=== PATIENT | female | born 1975 | race Caucasian/White ===

== ENCOUNTER 2020-06-29 07:00 | Day surgery (SDC) | payer OTHER ==
[~2020-06-29] VITALS: Ht 165.1 cm; Wt 86.0 kg
[~2020-06-29 07:00] MED LIST: ADVAIR 100-501 EACH INH; COMBIVENT RESPIM4 GM INH; LISINOPRIL2.5 MG PO; SINGULAIR4 M1 PO
[2020-06-29] MEDS ORDERED: OMEPRAZOLE20 MG PO (07:19)
--- NOTE | 2020-06-29 08:15 | NUR ---
06/29/20 0815 Izabela Hidalgo 0808 PT TO PACU SLEEPY BUT AROUSABLE DENIES PAIN OR NAUSEA.
--- NOTE | 2020-06-29 08:57 | OR ---
[facility] [address], [place] [address] Signed DATE OF OPERATION: 06/29/2020 SURGEON: Iam Jeffery MD PREOPERATIVE DIAGNOSES: 1. Heartburn. 2. Asthma and cough. 3. Vomiting. 4. Esophageal dysphagia. POSTOPERATIVE DIAGNOSES: 1. Moderate hiatal hernia (36-32 cm). 2. Mild distal esophagitis. PROCEDURES: EGD with CLOtest and biopsies of the pyloric bulb, antrum and distal esophagus. ESTIMATED BLOOD LOSS: None. INDICATIONS: Cornelia is a 45-year-old female asked to see me for upper endoscopy. She said the last six months she has had terrible heartburn requiring significant amounts of Tums and Rolaids. She said the asthma and her cough were worse. It is worse when she lies supine. In the last two months, she started vomiting having what sounds like proximal esophageal dysphagia. Although she lives in [place], [place], she works in the [place] area. Consequently, she sees Dr. Ace Garza [facility] [place], [place]. In the office I had given Cornelia a pamphlet on upper endoscopy. She understands the nature of the test along with the risks including, but not limited to gas bloating, crampy abdominal pain, bleeding, perforation requiring surgery, and missed diagnosis. She also understands the need for IV conscious sedation. We also sent Cornelia for a barium swallow. She does have a small to moderate sized hiatal hernia and possibly a little narrowing of the esophagus right around the C5-C6 position. However, it does not impede her swallowing. Of course, she had reflux during the test. In talking with Cornelia this morning, she did start omeprazole and she is not sure it is helping. She is only taking 20 mg once a day. However, after talking with Cornelia, we decided to hold off dilating the proximal esophagus. Usually these patients can get their acid reflux under control, then their dysphagia improves. In the end, she is quite young, she may require surgical treatment of the hiatal hernia. She had expressed understanding and wished to proceed. Electronically Signed By: IAM JEFFERY MD 06/29/20 0857 PATIENT NAME: CORNELIA DODD OPERATIVE REPORT DATE OF : 73 REPORT #: [id number] PHYSICIAN: IAM JEFFERY MD PCP: ACE GARZA REPORT IS CONFIDENTIAL AND NOT TO BE RELEASED WITHOUT AUTHORIZATION [facility] [address] [place] [id number] Signed PROCEDURE NOTE: Cornelia was taken into our endoscopy suite and placed in the supine semi-recumbent position. She was given IV sedation with 5 mg of Versed and 100 mcg of fentanyl. The posterior oropharynx was anesthetized with lidocaine spray. A bite block was utilized for the case. The adult gastroscope was introduced and advanced under direct visualization out into the third portion of the duodenum without difficulty. The duodenum was unremarkable. Very minimal if any inflammatory changes in the pyloric bulb and the antrum. We went and took a biopsy of the pyloric bulb and the antrum for pathologic review. An additional biopsy came out of the antrum for CLOtest. No ulcerations. Upon retroflexion of scope, we can see her moderate-sized hiatal hernia. It measured out from 36 to 32 cm. The scope was withdrawn up through the area of the GE junction, which was compliant without stricture. There was no Sharif's mucosa. However she had several streaks of inflammatory changes up into the distal esophagus. Consequently, she has mild distal esophagitis. We went and took a biopsy just above the GE junction in this area. The middle and upper esophagus were unremarkable. Specifically, no obvious stricture in passing the scope. The posterior oropharynx appeared unremarkable. In particular, the vocal cords and the arytenoids unremarkable. After this, the gas was suctioned out and the gastroscope removed and she tolerated the procedure quite well. RECOMMENDATIONS: I will see Cornelia back in my office in 7 to 14 days to review her results. She might consider using an H2 jose in the evening to help at night. In the end, she is a likely candidate for surgical treatment of her hiatal hernia. Iam Jeffery MD ALB/MODL /[id number] cc: MD Ace Galloway Electronically Signed By: IAM JEFFERY MD 06/29/20 0857 PATIENT NAME: CORNELIA DODD OPERATIVE REPORT DATE OF : 73 REPORT #: [id number] PHYSICIAN: IAM JEFFERY MD PCP: ACE GARZA REPORT IS CONFIDENTIAL AND NOT TO BE RELEASED WITHOUT AUTHORIZATION [address] [address] Signed Copies: IAM JEFFERY MD, BRUCE ~ Electronically Signed By: IAM JEFFERY MD 06/29/20 0857 PATIENT NAME: CORNELIA DODD Velasquez OPERATIVE REPORT DATE OF : 73 REPORT #: [id number] PHYSICIAN: IAM JEFFERY MD PCP: ACE GARZA REPORT IS CONFIDENTIAL AND NOT TO BE RELEASED WITHOUT AUTHORIZATION
== END 2020-06-29 08:50 | disposition home or self-care (01) ==
LOC: OPS 07:00 → DS 08:15 → OPS 08:15
PROVIDERS: ATTEND Colon & Rectal Surgery
PROC: 0DB78ZX Excision of Stomach, Pylorus, Via Natural or Artificial Opening Endoscopic, Diagnostic (ICD-10-PCS; 2020-06-29)
PROC: 0DB48ZX Excision of Esophagogastric Junction, Via Natural or Artificial Opening Endoscopic, Diagnostic (ICD-10-PCS; principal; 2020-06-29 08:15)
DX: K21.00 Gastro-esophageal reflux disease with esophagitis, without bleeding (principal); K29.50 Unspecified chronic gastritis without bleeding; K44.9 Diaphragmatic hernia without obstruction or gangrene; J45.909 Unspecified asthma, uncomplicated; Z88.0 Allergy status to penicillin
CPT/HCPCS: 84703; 86677; G0500; J2250; J3010; J7121

== ENCOUNTER 2024-05-01 05:57 | Day surgery (SDC) | payer BC ==
[2024-04-28 10:39] VITALS: BP 111/70
[~2024-05-01] VITALS: Ht 165.1 cm; Wt 97.7 kg
[~2024-05-01 05:57] MED LIST changes: +ALL DAY ALLERGY10 MG PO; +MIDAZOLAM HCL 5 MG/5 ML VIAL IV PRN; +OMEPRAZOLE20 MG PO; +fentaNYL citrate 100 MCG/2 ML VIAL IV PRN
[2024-05-01 06:06] VITALS: BP 132/83
[2024-05-01] MEDS ORDERED: COMBIVENT RESPIM4 GM INH (06:19)
[2024-05-01] MEDS ORDERED: LIDOCAINE HCL 1% 5 ML SDV INJ ONE (07:00)
[2024-05-01] MEDS ORDERED: LACTATED RINGER'S 1,000 ML IV SCH (07:00)
[2024-05-01] MEDS ORDERED: IBLOOD GLUCOSE TEST STRIP 1 EA TEST VI PRN (07:00)
[2024-05-01] MEDS ORDERED: LIDOCAINE HCL 2% 5 ML SDV ONE (07:12)
[2024-05-01] MEDS ORDERED: propofoL 200 MG/20 ML VIAL ONE (07:12)
[2024-05-01 08:26] VITALS: BP 130/78
--- NOTE | 2024-05-01 08:52 | NUR ---
05/01/24 0852 Radha Solorzano 0755- PT ARRIVES WITH A NATURAL AIRWAY ON 4L OF O2 VIA NC. BREATHING IS EVEN AND UNLABORED. PT IS REACTIVE TO STIMULI. PT LIFTING ARMS AND ITCHING HER FACE, PT REMINDED TO BE CAREFUL OF HER EYES. WHEN ASKED ABOUT PAIN THE PT HOLDS UP HER RIGHT HAND WITH THE IV SITE AND DENIES NAUSEA. PT EASILY FALLS BACK TO SLEEP AND SOME SNORING NOTED. LR INFUSING IN HER R HAND AND HER ABDOMEN IS SOFT AND NONDISTENDED. ALL MONITORS PUT IN PLACE AND VSS. PT IS MOVED UP IN THE BED AND KNEES BENT FOR COMFORT. 0806- O2 TURNED OFF AND REMOVED FOR O2 SATS AT 100%. PT IS ABLE TO MAINTAIN O2 SATS ABOVE 95%. 0813- PT EASILY WAKES TO VERBAL STIMULI AND HOB INCREASED AND WATER PROVIDED PER REQUEST. PT TOLERATING WELL. 0815- PT REPORTS THAT HER THROAT IS "SORE" AND SCORES IT A 1/10 ON THE SCALE. PT REPORTS THAT THIS IS TOLERABLE. 0821- DC INSTRUCTIONS AND PAPERWORK GONE OVER. NO QUESTIONS OR CONCERNS. 0827- ALL MONITORS REMOVED. IV REMOVED. PT GETTING DRESSED INDEPENDENTLY WITH NO ISSUES. PT AMBULATES WITH AN EVEN AND STEADY GAIT TO THE RESTROOM AND RETURNS. 0838- PT DC FROM PACU WITH ALL BELONGINGS AND PAPERWORK VIA . PT DENIES QUESTIONS OR CONCERNS.
--- NOTE | 2024-05-01 08:55 | OR ---
[facility] [address], [place] [address] Signed DATE OF OPERATION: 05/01/2024 SURGEON: Iam Jeffery MD PREOPERATIVE DIAGNOSES: 1. Moderate sized hiatal hernia (36-32 cm). 2. Gastroesophageal reflux disease. 3. Mild proximal esophageal dysphagia. 4. History of gastritis. 5. History of distal esophagitis. POSTOPERATIVE DIAGNOSES: 1. Moderate sized hiatal hernia (38-32 cm). 2. GE junction at 32 cm. 3. Mild distal gastritis. 4. Mild distal linear esophagitis. PROCEDURES: Esophagogastroduodenoscopy with CLOtest, biopsies of the antrum, GE junction and dilation with 54-Guamanian with Surinamese dilator. ESTIMATED BLOOD LOSS: None. INDICATIONS: Cornelia is a 49-year-old, obese female, asked to see me for a followup upper endoscopy. I helped her in May 2020 at the age of 45. She was having heartburn and a sense of proximal esophageal dysphagia. Her barium swallow at that time showed an ever so slight narrowing at the C5-C6 level. It did not impede the swallowing. We found a moderate-sized hiatal hernia. It measured from about 36 cm back to about 32 cm. She had very mild gastritis and distal esophagitis. The CLOtest was negative. We did not dilate her at that time. She tells me in the office that she has gained 70 pounds. She thinks her symptoms are worse. She tried phentermine to lose weight, but no success. She tried keto diet and that was without success. She thinks her proximal esophageal dysphagia is getting worse. She had been to her primary care provider. She was asked to see me with respect to the above. We repeated the barium swallow and there was no sense of any narrowing at the C5-C6 level. There is no dysmotility. Of course she has a hiatal hernia. In the office I had given her a pamphlet on upper endoscopy. We had reviewed that together in detail. She recalls the nature of the test. There is risk including, but not limited to gas bloating, crampy abdominal pain, bleeding, perforation Electronically Signed By: IAM JEFFERY MD 05/01/24 0855 PATIENT NAME: CORNELIA DODD OPERATIVE REPORT DATE OF : 73 REPORT #: [id number] PHYSICIAN: IAM JEFFERY MD PCP: TED ROPER REPORT IS CONFIDENTIAL AND NOT TO BE RELEASED WITHOUT AUTHORIZATION [facility] [address], [place] [address] Signed requiring surgery, and missed diagnosis. I reviewed both barium swallow test with her this morning. She wanted me to empirically dilate her esophagus. She had expressed understanding and wished to proceed. DESCRIPTION OF PROCEDURE: Cornelia was taken into our endoscopy suite and placed in the supine semi-recumbent position. She was given propofol infusion per our nurse navy seal. A bite block was utilized for the case. The adult gastroscope was introduced and advanced without difficulty out into the duodenum. Her duodenum and pyloric channel were unremarkable. Once again, she has a little bit of inflammation in her antrum. We took a biopsy for pathologic review as well as CLOtest. She always has a few hypertrophic polypoid lesions in her proximal half of her stomach from the omeprazole. Upon retroflexion of scope we can easily see her hiatal hernia. Again, it measured out from around 36 to 38 cm back to about 32 cm. The scope had been withdrawn up through the area of the GE junction, which was compliant without stricture. There was no gastric or esophageal varices. Once again she has some linear distal esophagitis. It is on the mild side. There was no Sharif's mucosa. The middle and upper esophagus were unremarkable. We had no sense of any stricture with our gastroscope. We went ahead and passed a wire down through the scope into the stomach. We dilated her esophagus with our 54-Guamanian Surinamese dilator that was without any resistance. It is largest dilated with fit through her oral cavity. After this, we passed the gastroscope back down through the esophagus and there were no breaks in the mucosa. No issues in her stomach. We then suctioned out the gas and withdrew the gastroscope. She tolerated the procedure well. RECOMMENDATIONS: I will see Cornelia back in my office in 7 to 14 days to review her results. If she is still having trouble, she may need advance testing. She is hinted at the fact that she might have her hiatal hernia repaired. Iam Jeffery MD ALB/MODL /[id number] cc: NERISSA Keita Electronically Signed By: IAM JEFFERY MD 05/01/24 0855 PATIENT NAME: CORNELIA DODD OPERATIVE REPORT DATE OF : 73 REPORT #: [id number] PHYSICIAN: IAM JEFFERY MD PCP: TED ROPER REPORT IS CONFIDENTIAL AND NOT TO BE RELEASED WITHOUT AUTHORIZATION [facility] [address] [place], [place] [address] Signed Iam Jeffery MD Patient Chart Copies: TED ROPER ANDREW L MD ~ Electronically Signed By: IAM JEFFERY MD 05/01/24 0855 PATIENT NAME: CORNELIA DODD OPERATIVE REPORT DATE OF : 73 REPORT #: [id number] PHYSICIAN: IAM JEFFERY MD PCP: TED ROPER REPORT IS CONFIDENTIAL AND NOT TO BE RELEASED WITHOUT AUTHORIZATION
--- NOTE | 2024-05-05 20:03 | PATH ---
[facility] [address], [place] [address] Signed SPECIMEN(S): A ANTRUM/PYLORUS BIOPSY SPECIMEN(S): B GE JUNCTION/ESOPHAGUS BIOPSY SPECIMEN SOURCE: A. ANTRUM/PYLORUS BIOPSY B. GE JUNCTION/ESOPHAGUS BIOPSY CLINICAL HISTORY: Proximal esophageal dysphagia, GERD, gastritis/esophagitis/hiatal hernia FINAL PATHOLOGIC DIAGNOSIS: A. Antrum/pylorus, biopsy: - Gastric antral type mucosa with superficial mild chronic gastritis. - Helicobacter pylori immunostain is negative for organisms. B. GE junction/esophagus, biopsy: - Esophageal mucosa with reactive features, negative for significantly increased epithelial eosinophils. - Negative for glandular mucosa. JVR:cml MICROSCOPIC EXAMINATION: Histologic sections of all submitted blocks are examined by light microscopy. These findings, together with the gross examination, support the pathologic diagnosis. A Helicobacter pylori immunostain is performed with appropriate positive and negative controls on block A1 and is negative for organisms. JVR:cml GROSS DESCRIPTION: A. The specimen, labeled and designated "Arian, antrum/pylorus biopsy," is received in formalin and consists of one olsen soft tissue fragment, 0.7 cm. Entirely submitted in (A1). B. The specimen, labeled and designated "Arian, GE junction/esophagus biopsy," is received in formalin and consists of two olsen soft tissue fragments, ranging from 0.2-0.3 cm. Entirely submitted in (B1). VB (under the direct supervision of a pathologist) The Gross Description was prepared using a voice recognition system. The report was reviewed for accuracy; however, sound-alike word errors, addition and/or deletions may occur. If there is any question about this report, please contact Client Services. PATIENT NAME: CORNELIA DODD PATHOLOGY DATE OF : 73 REPORT #: [id number] PHYSICIAN: [facility] PCP: TED ROPER REPORT IS CONFIDENTIAL AND NOT TO BE RELEASED WITHOUT AUTHORIZATION [facility] [address], [place] [address] Signed ADDITIONAL NOTES: Immunohistochemical and/or in situ hybridization studies were performed on this case with the appropriate positive controls that react as expected. This test was developed and its performance characteristics determined by [facility]. It has not been cleared or approved by the U.S. Food and Drug Administration. The FDA has determined that such clearance or approval is not necessary. This test is used for clinical purposes. It should not be regarded as investigational or for research. [facility] is certified under the Clinical Laboratory Improvement Amendments of 1988 (CLIA) as qualified to perform high complexity clinical laboratory testing. This assay has not been validated for specimens that have been decalcified. PERFORMING LABORATORY: Technical component was performed by [facility], [address] [place] [id number] (CLIA# [id number]). Professional interpretation was performed by [facility], [address] [place] [id number] (CLIA#: [id number]). Diagnostician: Alexandre Grewal MD Pathologist Electronically Signed 05/05/2024 Copies: ~ PATIENT NAME: CORNELIA DODD PATHOLOGY DATE OF : 73 REPORT #: [id number] PHYSICIAN: [facility] PCP: TED ROPER REPORT IS CONFIDENTIAL AND NOT TO BE RELEASED WITHOUT AUTHORIZATION
== END 2024-05-01 08:38 | disposition home or self-care (01) ==
LOC: DS 05:57
PROVIDERS: ATTEND Colon & Rectal Surgery
PROC: 0D748ZZ Dilation of Esophagogastric Junction, Via Natural or Artificial Opening Endoscopic (ICD-10-PCS; 2024-05-01)
PROC: 0DB68ZX Excision of Stomach, Via Natural or Artificial Opening Endoscopic, Diagnostic (ICD-10-PCS; principal; 2024-05-01 07:30)
DX: K21.00 Gastro-esophageal reflux disease with esophagitis, without bleeding (principal); K29.50 Unspecified chronic gastritis without bleeding; K44.9 Diaphragmatic hernia without obstruction or gangrene; I10 Essential (primary) hypertension; J45.909 Unspecified asthma, uncomplicated; E66.9 Obesity, unspecified; Z68.36 Body mass index [BMI] 36.0-36.9, adult; Z88.0 Allergy status to penicillin; Z79.899 Other long term (current) drug therapy
CPT/HCPCS: 00813; 36415; 87077; J2003; J2704; J7121